=== PATIENT | female | born 1950 | race Caucasian/White ===

== ENCOUNTER 2017-09-17 11:46 | Emergency (ER) | payer MEDICARE, OTHER ==
[~2017-09-17] VITALS: Ht 170.2 cm; Wt 95.3 kg
[~2017-09-17 11:46] MED LIST: ASPIR 8181 MG; CELEBREX100 MG PO; GLUCOSAMINE1000 MG PO; MAG-OXIDE400 MG PO; NORTRIPTYLINE H25 MG PO; PREVACID 24HR15 MG PO; TOPAMAX100 MG PO; VERAPAMIL ER120 MG PO; VESICARE10 MG PO; VITAMIN D3400 UNI1 PO
--- OUTSIDE RECORDS SUMMARY | 2017-09-17 11:49 | XMS REPORT | Clinical Summary ---
Author Author [facility] Organization [facility] Address Unknown Phone Unavailable Care Team Providers Care Hop Separator Name Role Phone Gabriel Warren DO PCP Allergies Not on File Current Medications Not on file Active Problems Not on file Encounters Date Type Specialty Care Team Description 02/26/2017 [facility] Ross Marley MD Kidney stone Encounter 02/26/2017 [facility] Lopez MD Kidney stone ( Primary Dx) Orders 01/20/2017 [facility] Ross Marley MD Calculus of kidney Encounter 01/20/2017 [facility] Lopez MD Calculus of kidney Orders (Primary Dx) after 09/16/2016 Social History Tobacco Use Types Packs/Day Years Used Date Never Assessed Sex Assigned at Date Recorded Not on file Last Filed Vital Signs Not on file Plan of Treatment Health Maintenance Due Date Last Done Comments BREAST CANCER SCREENING 1998 COLON CANCER SCREENING 1998 SHINGRIX VACCINE (#1) 1998 ZOSTER VACCINE 2008 PNEUMOCOCCAL 2013 POLYSACCHARIDE VACCINE AGE 65 AND OVER PNEUMOCOCCAL-13 2013 INFLUENZA VACCINE 12/02/2017 Results * XR [facility] Kidney Ureter Bladder (02/26/2017 9:46 AM) Only the most recent of 2 results within the time period is included. Specimen Performing Laboratory [facility] [address] [place] [address] Narrative EXAMINATION:XR KUB KIDNEY URETER BLADDER CLINICAL HISTORY:N20.0 Calculus of kidney, n20.0 COMPARISON:KUB from 01/20/2017 IMPRESSION: Previously noted ill-defined cluster of calcific densities noted to the left of the L2 vertebral body are no longer visualized. No suspicious calcifications are seen to overlie the anatomic location of the left kidney or along the course of the left ureter. Phleboliths are seen within the pelvis. No calcifications are seen to overlie the right kidney or collecting system, however, evaluation is limited due to overlying bowel gas and stool. No dilated loops of large or small bowel. The bones of the abdomen and pelvis are unremarkable. The lung bases are clear. [id number] Procedure Note Hm Interface, Radiology Results Incoming - 02/26/2017 10:34 AM CDT EXAMINATION: XR KUB KIDNEY URETER BLADDER CLINICAL HISTORY: N20.0 Calculus of kidney, n20.0 COMPARISON: KUB from 01/20/2017 IMPRESSION: Previously noted ill-defined cluster of calcific densities noted to the left of the L2 vertebral body are no longer visualized. No suspicious calcifications are seen to overlie the anatomic location of the left kidney or along the course of the left ureter. Phleboliths are seen within the pelvis. No calcifications are seen to overlie the right kidney or collecting system, however, evaluation is limited due to overlying bowel gas and stool. No dilated loops of large or small bowel. The bones of the abdomen and pelvis are unremarkable. The lung bases are clear. [id number] after 09/16/2016 Insurance Payer Benefit Subscriber ID Type Phone Address Plan / Group AAMIR BOYER xxxxxxxxxxx HMO ACCESS/NET WORK MEDICARE MEDICARE xxxxxxxxxxx Medicare [place], [place] PART A AND B
--- OUTSIDE RECORDS SUMMARY | 2017-09-17 11:49 | XMS REPORT ---
Author Author [facility] Address Unknown Phone Unavailable Care Team Providers Care Miscellaneous Machine Operator Name Role Phone HARPER MARTIN Unavailable Unavailable Problems This patient has no known problems. Allergies, Adverse Reactions, Alerts This patient has no known allergies or adverse reactions. Medications This patient has no known medications. Results Test Description Test Time Test Comments Text Results Atomic Results Result Comments CT ABDOMEN/PELVIS WO [place] [address] Patient Name: LAINEY SOLIS MR #: [id number] : 1950 Age/Sex: 66/F Req #: [id number] Adm Physician: HARPER MARTIN MD Ordered by: JAQUELINE SANCHEZ MD Report #: [id number] Location: [facility]URG Room/Bed: [facility] _ Procedure: [id number] CT/CT ABDOMEN/PELVIS WO Exam Date: 01/11/17 Exam Time: 1926 REPORT STATUS: Signed EXAM: CT Abdomen and Pelvis WITHOUT contrast INDICATION: Renal stones. COMPARISON: KUB on 01/08/2017 TECHNIQUE: Abdomen and pelvis were scanned utilizing a multidetector helical scanner from the lung base to the pubic symphysis without administration of IV contrast. Absence of intravenous contrast decreases sensitivity for detection of focal lesions and vascular pathology. Coronal and sagittal reformations were obtained. Stone protocol is performed. IV CONTRAST: None. ORAL CONTRAST: Water RADIATION DOSE: Total DLP: 732.84 mGy*cm Estimated effective dose: (DLP x 0.015 x size factor) mSv COMPLICATIONS: None FINDINGS: LINES and TUBES: None. LOWER THORAX: Small bilateral pleural effusions HEPATOBILIARY: 1 cm simple cyst in segment 2 of the liver. No biliary ductal dilation. GALLBLADDER: There are stones in the gallbladder. No wall thickening. SPLEEN: No splenomegaly. PANCREAS: No focal masses or ductal dilatation. ADRENALS: No adrenal nodules KIDNEYS/URETERS: No hydronephrosis. 1.4 cm and now in the upper pole of the right kidney. 1 cm angiomyolipoma in the inferior pole of the right kidney. There are several stones in the interpolar and inferior renal collecting system of the left kidney measuring between 0.7 and 1 cm in diameter GI TRACT: No abnormal distention, wall thickening, or evidence of bowel obstruction. There are diverticula within the colon without evidence of diverticulitis. Appendix is normal. PELVIC ORGANS/BLADDER: There are postop changes of hysterectomy and bilateral oophorectomies. LYMPH NODES : No lymphadenopathy. VESSELS: Unremarkable. PERITONEUM / RETROPERITONEUM: No free air or fluid. BONES: Degenerative disc changes at L4-5 level SOFT TISSUES: Unremarkable. IMPRESSION: 1. Left-sided nephrolithiasis as described above. No evidence of hydronephrosis. 2. Bilateral small pleural effusions of indeterminate origin. 3. Right- sided angiomyolipoma of the kidney Signed by: Dr. Greg Cruz M.D. on 01/11 8:59 PM Dictated By: GREG MARTÍNEZ MD 58 Transcribed By: ABBIE on 01/11/172058 COPY TO: JAQUELINE SANCHEZ MD [facility]OMEN-1[facility] [place] [address] Patient Name: LAINEY SOLIS MR #: [id number] : 1950 Age/Sex: 66/F Req #: [id number] Adm Physician: HARPER MARTIN MD Ordered by: JAQUELINE SANCHEZ MD Report #: [id number] Location: [facility]/SURG2 Room/Bed: 206-1 _ Procedure: [id number] DX/ABDOMEN-1VIEW (KUB) Exam Date: 01/11/17 Exam Time: 06 REPORT STATUS: Signed Abdomen/KUB INDICATION: Follow-up stones. COMPARISON: Abdomen x-ray 01/08/2017. FINDINGS: Enteric contrast is identified throughout the large bowel, particularly the right colon and transverse colon. Bowel gas pattern is unremarkable. The calculi overlying the right renal collecting system are no longer visualized. A calculus to the right of the lower lumbar spine at L5 measures 6 mm and is grossly stable. No calculi appreciated over the left renal shadow or expected course of the left ureter. The osseous structures are stable with degenerative changes of the spine.. IMPRESSION: The calculi over the right renal shadow are no longer visualized. This could be due to technique or artifact. A calcification to the right of the L5 vertebral body is stable and may or may not be within the ureter. Unremarkable bowel gas pattern. Signed by: Dr. Sheron Mancilla MD on 02/2017 10:01 AM Dictated By: SHERON MANCILLA MD 1001 Transcribed By: ABBIE on 02/17 1001 COPY TO: JAQUELINE SANCHEZ MD ABDOMEN-1VIEW (KUB) [place] [address] Patient Name: LAINEY SOLIS MR #: [id number] : 1950 Age/Sex: 66/F Req #: [id number] Adm Physician: HARPER MARTIN MD Ordered by: JAQUELINE SANCHEZ MD Report #: [id number] Location: [facility] Room/Bed: [facility] 177-1 _ Procedure: [id number] DX/ABDOMEN-1VIEW (KUB) Exam Date: 01/08/17 Exam Time: 2029 REPORT STATUS: Signed EXAM: ABDOMEN- 1VIEW (KUB) DATE: 01/08/2017 7:36 PM Time stamp on exam: 2030 hours INDICATION: Evaluation of stones. COMPARISON: None FINDINGS: LINES/TUBES: None BOWEL PATTERN: No evidence for obstruction. SOFT TISSUES: There are multiple calcific densities overlying the right renal collecting system in the upper and interpolar region as well as 2 calcific densities in the distribution of the mid right ureter/gonadal vein. Upper pole of the right kidney: There is a 1.1 cm and 0.6 cm calcific densities. Interpolar region of the right kidney: 4 mm calcific density noted. Along the distribution of the mid right ureter/ vein there are a 0.7 and 0.5 cm calcific densities overlying the transverse process of L5 and right sacral ala. The inferior pole of the right kidney is obscured by radiopaque GI contrast in the colon. LUNG BASES: Not included BONES : Degenerative changes of the lower lumbar spine predominantly involving L4-5 and L5-S1 level IMPRESSION: Multiple calcific densities in the right kidney and distribution of the right ureter suggestive of nephrolithiasis and ureteral stones. CT of the abdomen and pelvis stone protocol is recommended for better assessment. Signed by: Dr. Greg Cruz M.D. on 01/08/2017 9: 08 PM Dictated By: GREG MARTÍNEZ MD 07 Transcribed By: ABBIE on 01/08/172107 COPY TO: JAQUELINE SANCHEZ MD
[2017-09-17 12:15] VITALS: BP 163/75
== END 2017-09-17 12:20 | disposition home or self-care (01) ==
LOC: ER 11:46 → FSED 12:20
DX: R05 Cough (principal); J20.9 Acute bronchitis, unspecified
CPT/HCPCS: 99282

== ENCOUNTER 2018-11-12 14:11 | Emergency (ER) | payer MEDICARE, OTHER ==
[~2018-11-12] VITALS: Ht 170.2 cm; Wt 95.3 kg
--- OUTSIDE RECORDS SUMMARY | 2018-11-12 14:14 | XMS REPORT | Clinical Summary ---
Author Author [facility] Organization [facility] Address Unknown Phone Unavailable Care Team Providers Care Risk Control Consultant Name Role Phone Gabriel Warren DO PCP Allergies Comments Active Allergy Reactions Severity Noted Date " Skin very thin, peels my skin off" Adhesive Tape-Silicones Other (See High 06/23/2018 Comments) Medications End Date Status Medication Sig Dispensed Refills Start Date Active losartan (COZAAR) 50 MG Take 50 mg by 0 tablet mouth every morning. Active atorvastatin (LIPITOR) 10 Take 10 mg by 0 MG tablet mouth every morning. Active verapamil sustained Take 240 mg 0 release (CALAN-SR) 240 MG by mouth SR tablet every morning. Active nortriptyline (PAMELOR) Take 25 mg by 0 25 MG capsule mouth nightly. Active topiramate (TOPAMAX) 25 Take 25 mg by 0 MG tablet mouth nightly. Takes 2 tabs at night Active magnesium oxide (MAG-OX) Take 400 mg 0 400 mg (241.3 mg by mouth magnesium) tablet daily. Active estradiol (VIVELLE-DOT) Place 1 patch 0 0.1 mg/24 hr on the skin 2 (two) times a week. Active glucosamine sulfate Take by mouth 0 (GLUCOSAMINE ORAL) daily. Active lansoprazole (PREVACID) Take 30 mg by 0 30 MG capsule mouth every morning. Active NON FORMULARY as needed. 0 finacea Active fluocinonide (LIDEX) 0.05 Apply 0 % external solution topically as needed. Active clobetasol (TEMOVATE) Apply 0 0.05 % cream topically as needed. Active cholecalciferol, vitamin Take by mouth 0 D3, (VITAMIN D3 ORAL) daily. Active iwzmnvd-bsyqnuqlbsigu-nro Take 1 tablet 0 feine (EXCEDRIN MIGRAINE) by mouth 250-250-65 mg per tablet every 6 (six) hours as needed for headaches. Active chlorpheniramine/phenylep Take 1 tablet 0 hrine (SINUS AND ALLERGY by mouth PE ORAL) daily as needed. Active acetaminophen (TYLENOL) Take 500 mg 0 500 MG tablet by mouth every 4 (four) hours as needed for mild pain. Active amoxicillin-pot 0 clavulanate (AUGMENTIN) 9 875-125 mg per tablet 07/15/2018 traMADol (ULTRAM) 50 mg Take 1 tablet 20 tablet 0 tablet (50 mg total) 9 by mouth every 6 (six) hours as needed for moderate pain for up to 10 days. 07/20/2018 methen-m.blue-s.phos-phsa Take 1 tablet 50 capsule 0 l-hyo (URIBEL) by mouth 4 9 118-10-40.8-36 mg capsule (four) times a day as needed (bladder pain, burning with urination) for up to 15 days. 08/04/2018 docusate sodium (COLACE) Take 1 60 capsule 0 50 MG capsule capsule (50 9 mg total) by mouth 2 (two) times a day as needed for constipation for up to 30 days. 07/12/2018 ciprofloxacin (CIPRO) 500 Take 1 tablet 14 tablet 0 MG tablet (500 mg 9 total) by mouth 2 (two) times a day for 7 days. Active Problems Not on file Encounters Care Team Description Date Type Specialty Ross Marley MD CYSTO, LEFT URETEROSCOPY, LEFT RETROGRADE PYELEOGRAM, LASER LITHOTRIPSY WITH LEFT STENT EXCHANGE 09/08/2018 Surgery Urology Refugio Johnson DO 09/08/2018 Anesthesia Urology Event Ross Marley MD 09/08/2018 Hospital Urology Encounter Ross Marley MD CYSTO WITH LEFT URETEROSCOPY W/ LASER LITHOTRIPSY, LEFT STENT EXCHANGE 07/28/2018 Surgery Urology Sylvie Dyer MD 07/28/2018 Anesthesia Urology Event Ross Marley MD Ureteral stone 07/28/2018 Hospital Urology Encounter Ross Marley MD CYSTOSCOPY, LEFT URETEROSCOPY, LEFT RETROGRADE PYELOGRAM, LEFT STENT PLACEMENT 07/05/2018 Surgery Urology Tremaine Darden, PRACHI 07/05/2018 Anesthesia Urology Event Ross Marley MD 07/05/2018 Hospital Urology Encounter Ross Marley MD Preop testing (Primary Dx) 06/25/2018 Pre-Admit Pre-Admission Testing Testing Appointment after 11/11/2017 Family History Medical History Relation Name Comments COPD Brother Hyperlipidemia Father Hypertension Father Leukemia Father Alzheimer's disease Mother COPD Mother Osteoporosis Mother Relation Name Status Comments Brother Alive Father Mother Social History Date Tobacco Use Types Packs/Day Years Used Never Smoker Smokeless Tobacco: Never Used Tobacco Cessation: Counseling Given: No Alcohol Use Drinks/Week oz/Week Comments Yes very rare Sex Assigned at Date Recorded Not on file Industry Job Start Date Occupation Not on file Not on file Not on file Travel End Travel History Travel Start No recent travel history available. Last Filed Vital Signs Time Taken Vital Sign Reading 09/08/2018 3:46 PM CDT Blood Pressure 139/65 09/08/2018 3:46 PM CDT Pulse 86 09/08/2018 10:47 AM CDT Temperature 36.3 C (97.3 F) 09/08/2018 3:46 PM CDT Respiratory Rate 18 09/08/2018 3:46 PM CDT Oxygen Saturation 99% - Inhaled Oxygen - Concentration 09/08/2018 8:36 AM CDT Weight 94.9 kg (209 lb 2 oz) 09/08/2018 8:36 AM CDT Height 170.2 cm (5' 7") 09/08/2018 8:36 AM CDT Body Mass Index 32.75 Plan of Treatment Care Team Description Date Type Specialty Ross Marley MD [address] [facility] [place] [address] [phone] 12/08/2018 Hospital Urology Encounter Ross Marley MD [address] [facility] [place], [place] [id number] CYSTOSCOPY LEFT RETROGRADE PYELOGRAM, LEFT STENT REMOVAL VS EXCHANGE 12/08/2018 Surgery Urology Health Maintenance Due Date Last Done Comments BREAST CANCER SCREENING 1998 COLONOSCOPY SCREENING 1998 SHINGLES VACCINES (#1) 1998 65+ PNEUMOCOCCAL VACCINE 2013 (1 of 2 - PCV13) INFLUENZA VACCINE 12/02/2018 Implants Device Identifier Shelf Expiration Date Model / Serial / Lot Implanted Type Area Manufactur er 07/02/2019 [id number] / / [id number] Stent Contour Injection 4.8x26 - Surgical N/A: N/A [facility] [place] [id number] Stents UROLOGY Implanted: Qty: 1 on 07/05/2018 by Ross Marley MD 03/11/2021 [id number] / / [id number] Stent Uretl Filifm Dbl Pigtl 6fr Surgical Left: Ureter, COOK 26cm Anitha Blk - [id number] Stents Lime UROLOGICAL Implanted: 07/28/2018 (Quantity not on file) 07/17/2020 [id number] / / [id number] Stent Uretl Filifm Dbl Pigtl 7fr Surgical N/A: N/A COOK 24cm Anitha Blk - [id number] Stents UROLOGICAL Implanted: Qty: 1 on 09/08/2018 by Ross Marley MD Procedures Comments Procedure Name Priority Date/Time Associated Diagnosis FL RENAL STENTOGRAM Routine 09/08/2018 10:00 AM CDT UT AN ELECTIVE Routine 09/08/2018 SUPRAGLOTTIC AIRWAY 9:31 AM CDT Procedure Note - Susie Morocho CRNA - 09/08/2018 9:31 AM CDT Airway Performed by: Susie Morocho CRNA Authorized by: Refugio Johnson DO Location: OR Urgency: Elective Difficult Airway: No Resident/C RNA/AA: Susie Morocho CRNA Performed by: resident/C RNA/AA Preoxygena abilio with 100% O2: Yes C-spine Precaution s Maintained Throughout : Yes Mask Ventilatio n: Easy mask Final Airway Type: Supraglott ic airway Final LMA: Classic LMA Size: 4 Number of Attempts at Approach: 1 Preoxygen ated x 3 minutes, eyes lubed and taped after LOC, oral and facial structures unchanged post LMA placement CYSTO, URETEROSCOPY 09/08/2018 Ureteral calculus, left 9:30 AM CDT Case Notes REQ 1000 START Special Needs REQ 1000 START POC PANEL Routine 09/08/2018 9:06 AM CDT ESTIMATED GFR Routine 09/08/2018 9:06 AM CDT FL > 1 HOUR Routine 07/28/2018 11:20 AM CDT UT AN ELECTIVE Routine 07/28/2018 SUPRAGLOTTIC AIRWAY 10:34 AM CDT Procedure Note - Carlos Manuel Thao CRNA - 07/28/2018 10:34 AM CDT Airway Date/Time: 07/28/2018 10:34 AM Performed by: Carlos Manuel Thao CRNA Authorized by: Sylvie Dyer MD Location: OR Urgency: Elective Difficult Airway: No Resident/C RNA/AA: Carlos Manuel Thao CRNA Performed by: resident/C RNA/AA Preoxygena abilio with 100% O2: Yes C-spine Precaution s Maintained Throughout : Yes Mask Ventilatio n: Not attempted Final Airway Type: Supraglott ic airway Final LMA: Classic LMA Size: 4 Number of Attempts at Approach: 1 CYSTO WITH URETEROSCOPY 07/28/2018 Ureteral stone 10:30 AM CDT Case Notes EST 1 HR, RESENDIZ LASER Special Needs EST 1 HR, RESENDIZ LASER FL RENAL STENTOGRAM Routine 07/05/2018 3:31 PM RADIATOR CORE TESTER UT AN ELECTIVE Routine 07/05/2018 SUPRAGLOTTIC AIRWAY 2:36 PM RADIATOR CORE TESTER Procedure Note - Carlos Manuel Thao CRNA - 07/05/2018 2:36 PM RADIATOR CORE TESTER Airway Date/Time: 07/05/2018 2:36 PM Performed by: Carlos Manuel Thao CRNA Authorized by: Refugio Johnson DO Location: OR Urgency: Elective Difficult Airway: No Resident/C RNA/AA: Carlos Manuel Thao CRNA Performed by: resident/C RNA/AA Preoxygena abilio with 100% O2: Yes C-spine Precaution s Maintained Throughout : Yes Mask Ventilatio n: Not attempted Final Airway Type: Supraglott ic airway Final LMA: Classic LMA Size: 4 Number of Attempts at Approach: 1 CYSTOSCOPY, WITH URINARY 07/05/2018 Renal stone CALCULUS MANIPULATION 2:30 PM RADIATOR CORE TESTER Case Notes EST 1 HRS Special Needs EST 1 HRS URINE CULTURE Routine 06/25/2018 1:48 PM RADIATOR CORE TESTER URINALYSIS SCREEN AND Routine 06/25/2018 Preop testing MICROSCOPY, WITH REFLEX 11:49 AM RADIATOR CORE TESTER TO CULTURE ESTIMATED GFR Routine 06/25/2018 11:47 AM RADIATOR CORE TESTER BASIC METABOLIC PANEL Routine 06/25/2018 Preop testing 11:47 AM RADIATOR CORE TESTER HC COMPLETE BLD COUNT Routine 06/25/2018 Preop testing W/AUTO DIFF 11:47 AM RADIATOR CORE TESTER after 11/11/2017 Results * FL Renal Stentogram (09/08/2018 10:00 AM CDT) Only the most recent of 2 results within the time period is included. Specimen Narrative Performed At IMPRESSION:C-arm Fluoroscopy under 1 hour was provided in the OR for the [facility] referring physician.A radiologist was not present during the procedure. Refer to the Operative report issued by the performing provider for procedure details. Procedure Note Hm Interface, Radiology Results Incoming - 09/08/2018 3:38 PM CDT IMPRESSION: C-arm Fluoroscopy under 1 hour was provided in the OR for the referring physician. A radiologist was not present during the procedure. Refer to the Operative report issued by the performing provider for procedure details. Performing Organization Address City/State/Zipcode Phone Number [facility] [address] [place] [address] * Estimated GFR (09/08/2018 9:06 AM CDT) Only the most recent of 2 results within the time period is included. Estimated GFR 51 (A) mL/min/1.73 m2 [place] Comment: [facility] rpretation G1 >=90 Normal or high G2 60-89Mildly decreased G2e70-15 Mildly to moderately decreased N3w21-74 Moderately to severely decreased G4 15-29Severely decreased G5 <15Kidney failure The eGFR was calculated using the Chronic Kidney Disease Epidemiology Collaboration (CKD-EPI) equation. Interpretation is based on recommendations of the National Kidney Foundation-Kidney Disease Outcomes Quality Initiative (NKF-KDOQI) published in 2014. Specimen Blood Performing Organization Address City/State/Zipcode Phone Number [facility] DEPARTMENT OF [address] [place] [address] PATHOLOGY AND GENOMIC MEDICINE [place] [facility] [address] [place] [address] * POC panel (09/08/2018 9:06 AM CDT) POC sodium 142 135 - 148 mmol/L [facility] POC potassium 4.6 3.5 - 5.0 mmol/L [facility] POC chloride 104 99 - 109 mmol/L [facility] POC CO2 26 24 - 31 mmol/L [facility] POC glucose 90 65 - 99 mg/dL [facility] POC BUN 11 8 - 24 mg/dL [facility] POC creatinine 1.1 (H) 0.5 - 0.9 mg/dl [facility] POC hematocrit 37 37 - 47 % [facility] POC anion gap 17 8 - 20 mmol/L [place] Comment: [facility] Meter ID: [id number] HOSPITAL Upholsterer Helper: Neftaly Casanova Specimen Performing Organization Address City/State/Zipcode Phone Number [facility] [place] [address] PATHOLOGY AND GENOMIC MEDICINE [address] * FL > 1 Hour (07/28/2018 11:20 AM CDT) Specimen Narrative Performed At EXAMINATION:FL >1 HOUR RADIANT LOCATION: MAIN OR CYSTO 1 PROCEDURE:CYSTOSCOPY START TIME: 1000 FINISH TIME: 1120 FLUORO TIME: 1:40 MIN DOSE:56.9 mGR TECH(S): AM IMPRESSION: Fluoroscopy was requested in the Endoscopy Suite. Separate endoscopy report will be issued by the physician performing the procedure. Procedure Note Interface, Radiology Results Incoming - 08/02/2018 9:20 PM CDT EXAMINATION: FL > 1 HOUR LOCATION: MAIN OR CYSTO 1 PROCEDURE: CYSTOSCOPY START TIME: 1000 FINISH TIME: 1120 FLUORO TIME: 1:40 MIN DOSE: 56.9 mGR TECH(S): AM IMPRESSION: Fluoroscopy was requested in the Endoscopy Suite. Separate endoscopy report will be issued by the physician performing the procedure. Performing Organization Address City/State/Zipcode Phone Number [facility] [address] [place] [address] * Urine culture (06/25/2018 1:48 PM RADIATOR CORE TESTER) Urine culture SEE COMMENTComment: [place] Bacteriuria screen negative. [facility] Specimen Performing Organization Address City/State/Zipcode Phone Number [facility] [place] [address] PATHOLOGY AND GENOMIC MEDICINE [address] * Urinalysis screen and microscopy, with reflex to culture (06/25/2018 11:49 AM RADIATOR CORE TESTER) Specimen site Clean catch [facility] Color, UA Straw [facility] Appearance, UA Clear [facility] Specific 1.006 1.001 - 1.035 [place] gravity, [facility] pH, UA 7.0 5.0 - 8.5 [facility] Protein, UA Negative Negative [facility] Glucose, UA Negative Negative [facility] Ketones, UA Negative Negative [facility] Bilirubin, UA Negative Negative [facility] Blood, UA Negative Negative [facility] Nitrite, UA Negative Negative [facility] Urobilinogen, <2.0 <2.0 [facility] Leukocyte Negative Negative [place] esterase, [facility] Epithelial 1 /HPF [place] cells, [facility] WBC, UA None seen 0 - 4 /HPF [facility] RBC, UA None seen 0 - 5 /HPF [facility] Bacteria, UA Few None seen [facility] Yeast, UA None seen [facility] Yeast with None seen [place] pseud[facility]ypha[facility]INT [facility] Specimen Urine Performing Organization Address City/State/Zipcode Phone Number [facility] DEPARTMENT OF [address] [place] [address] PATHOLOGY AND GENOMIC MEDICINE [address] * CBC with platelet and differential (06/25/2018 11:47 AM RADIATOR CORE TESTER) WBC 7.99 4.50 - 11.00 k/uL [facility] RBC 4.42 4.20 - 5.50 m/uL [facility] HGB 12.1 12.0 - 16.0 g/dL [facility] HCT 40.5 37.0 - 47.0 % [facility] MCV 91.6 82.0 - 100.0 fL [facility] MCH 27.4 27.0 - 34.0 pg [facility] MCHC 29.9 (L) 31.0 - 37.0 g/dL [facility] RDW - SD 50.5 37.0 - 55.0 fL [facility] MPV 10.5 8.8 - 13.2 fL [facility] Platelet count 213 150 - 400 k/uL [facility] Nucleated RBC 0.00 /100 WBC [facility] Neutrophils 67.6 39.0 - 69.0 % [facility] Lymphocytes 20.4 (L) 25.0 - 45.0 % [facility] Monocytes 9.0 0.0 - 10.0 % [facility] Eosinophils 2.1 0.0 - 5.0 % [facility] Basophils 0.5 0.0 - 1.0 % [facility] Immature 0.4Comment: "Immature 0.0 - 1.0 % [place] granulocytes granulocytes" (promyelocytes, [facility] myelocytes, metamyelocytes) HOSPITAL Specimen Blood Performing Organization Address City/State/Zipcode Phone Number [facility] DEPARTMENT OF [address] [place] [address] PATHOLOGY AND GENOMIC MEDICINE [address] * Basic metabolic panel (06/25/2018 11:47 AM RADIATOR CORE TESTER) Sodium 138 135 - 148 mEq/L [facility] Potassium 4.4 3.5 - 5.0 mEq/L [facility] Chloride 103 98 - 112 mEq/L [facility] CO2 26 24 - 31 mEq/L [facility] Anion gap 9@ANIO 7 - 15 mEq/L [facility] BUN 13 8 - 23 mg/dL [facility] Creatinine 1.15 (H) 0.50 - 0.90 mg/dL [facility] Glucose 83 65 - 99 mg/dL [facility] Calcium 8.9 8.8 - 10.2 mg/dL [facility] Specimen Plasma specimen Performing Organization Address City/State/Zipcode Phone Number [facility] DEPARTMENT OF [address] [place] [address] PATHOLOGY AND GENOMIC MEDICINE [address] after 11/11/2017 Insurance Type Payer Benefit Subscriber ID Effective Phone Address Plan / Dates Group Indemnity CIGNA CIGNA xxxxxxxxxxx 2001-P INDEMNITY resent Medicare MEDICARE MEDICARE xxxxxxxxxxx 2013-P PERAL[place], PART A AND resent [place] B Advance Directives Patient has advance care planning documents on file. For more information, belinda kwong contact: Samir Andrea [address] [place] [address]
--- OUTSIDE RECORDS SUMMARY | 2018-11-12 14:16 | XMS REPORT | Summary of Care ---
Author Organization Unknown Address Unknown Phone Unavailable Encounter HQ Anirudhr_magdalene(BRIDGETTE) [id number] Date(s): 02/27/14 - 02/27/14 [facility] Outpatient Imaging [address] [address] [place] Discharge Disposition: Home Physician Attending: Mathew Trevino MD Reason for Visit 346.60 - PRS JOSE LUIS W INF W Problem List No data available for this section Allergies, Adverse Reactions, Alerts Substance Reaction Severity Status NKDA Active Medications No data available for this section Medications Administered During Your Visit No data available for this section Immunizations No data available for this section
--- OUTSIDE RECORDS SUMMARY | 2018-11-12 14:16 | XMS REPORT | Summary of Care ---
Author Author [facility] Outpatient Imaging [facility] Outpatient Imaging [place] Address Unknown Phone Unavailable Encounter HQ Encntr_alias(FIN) [id number] Date(s): 09/25/15 - 09/25/15 [facility] Outpatient Imaging [place] [address] [place] [phone] Discharge Disposition: Home Attending Physician: Mathew Trevino MD Vital Signs No data available for this section Problem List No data available for this section Allergies, Adverse Reactions, Alerts Substance Reaction Severity Status NKDA Active Medications No data available for this section Results No data available for this section Immunizations No data available for this section Procedures No data available for this section Social History No data available for this section Assessment and Plan No data available for this section
--- OUTSIDE RECORDS SUMMARY | 2018-11-12 14:16 | XMS REPORT | Summary of Care ---
Author Author [facility] Organization [facility] Address Unknown Phone Unavailable Encounter HQ Encntr_aliarlette(FIN) [id number] Date(s): 03/18/17 - 03/18/17 [facility] [address] [place] [address]- [phone] Discharge Disposition: Home or Self Care Attending Physician: Adarsh Wilson MD Referring Physician: Adarsh Wilson MD Vital Signs No data available for [...]
--- OUTSIDE RECORDS SUMMARY | 2018-11-12 14:16 | XMS REPORT | Continuity of Care Document ---
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 [place] OBESITY, UNSPECIFIED Active [facility] Medications Medication Details Route Status Patient Instructions Ordering Provider Order Date Source Aspirin (Aspir 81) 81 Mg Tablet. [facility] Celecoxib (Celebrex*) 100 Mg Capsule Twice A Day [facility] Cholecalciferol (Vitamin D3) (Vitamin D3) 400 Unit Tab.chew Daily [facility] Glucosamine Sulfate 2KCL (Glucosamine) 1,000 Mg Tablet Twice A Day [facility] Lansoprazole (Prevacid 24HR) [address] Elizabeth [facility] Magnesium Oxide (Mag-Oxide) 400 Mg Tablet Daily [facility] Nortriptyline Hcl 25 Mg Capsule Daily [facility] Solifenacin Succinate (Vesicare) 10 Mg Tablet Daily [facility] Topiramate (Topamax*) 100 Mg Tablet Twice A Day [facility] Verapamil Hcl (Verapamil Er) 120 Mg Cap24h.pel Daily [facility] Allergies, Adverse Reactions, Alerts Substance Category Reaction Severity Reaction type Status Date Reported Comments Source No Known Drug Allergies Unknown Allergy to Substance Active 12/31/2009 [facility] TAPE Unknown Allergy to Substance Active 01/08/2017 [facility] Immunizations No Data Provided for This Section Results Order Name Results Value Reference Range Date Interpretation Comments Source Automated blood basophil count (count/volume) Automated blood basophil count (count/volume) 0.0 0.0 - 0.1 01/11/2017 [facility] Automated blood basophil count as percentage of total leukocytes Automated blood basophil count as percentage of total leukocytes 0.2 0.0 - 1.0 01/11/2017 [facility] Automated blood eosinophil count Automated blood eosinophil count 0.2 0.0 - 0.4 01/11/2017 [facility] Automated blood eosinophil count as percentage of total leukocytes Automated blood eosinophil count as percentage of total leukocytes 2.3 0.0 - 6.0 01/11/2017 [facility] Automated blood hematocrit (volume fraction) Automated blood hematocrit (volume fraction) 28.7 34.2 - 44.1 01/11/2017 [facility] Automated blood lymphocyte count as percentage ot total leukocytes Automated blood lymphocyte count as percentage ot total leukocytes 12.4 18.0 - 39.1 01/11/2017 [facility] Automated blood monocyte count as percentage of total leukocytes Automated blood monocyte count as percentage of total leukocytes 12.4 4.4 - 11.3 01/11/2017 [facility] Automated blood neutrophil count Automated blood neutrophil count 5.9 2.1 - 6.9 01/11/2017 [facility] Automated blood platelet count (count/volume) Automated blood platelet count (count/volume) 228 140 - 360 01/11/2017 [facility] Automated blood segmented neutrophil count as percentage of total leukocytes Automated blood segmented neutrophil count as percentage of total leukocytes 71.7 38.7 - 80.0 01/11/2017 [facility] Automated erythrocyte mean corpuscular hemoglobin (mass per erythrocyte) Automated erythrocyte mean corpuscular hemoglobin (mass per erythrocyte) 27.3 28 - 32 01/11/2017 [facility] Automated erythrocyte mean corpuscular hemoglobin concentration measurement (mass/volume) Automated erythrocyte mean corpuscular hemoglobin concentration measurement (mass/volume) 32.1 31 - 35 01/11/2017 [facility] Automated erythrocyte mean corpuscular volume Automated erythrocyte mean corpuscular volume 85.2 81 - 99 01/11/2017 [facility] Blood erythrocytes automated count (number/volume) Blood erythrocytes automated count (number/volume) 3.37 3.6 - 5.1 01/11/2017 [facility] Blood hemoglobin measurement (moles/volume) Blood hemoglobin measurement (moles/volume) 9.2 12.0 - 16.0 01/11/2017 [facility] Blood leukocytes automated count (number/volume) Blood leukocytes automated count (number/volume) 8.28 4.8 - 10.8 01/11/2017 [facility] Blood lymphocytes count (number/volume) Blood lymphocytes count (number/volume) 1.0 1.0 - 3.2 01/11/2017 [facility] Blood monocytes automated count (number/volume) Blood monocytes automated count (number/volume) 1.0 0.2 - 0.8 01/11/2017 [facility] Estimated glomerular filtration rate (GFR) determination Estimated glomerular filtration rate (GFR) determination >60 60 01/11/2017 [facility] Glucose measurement Glucose measurement 97 74 - 118 01/11/2017 [facility] Serum or plasma anion gap Serum or plasma anion gap 10.3 8 - 16 01/11/2017 [facility] Serum or plasma calcium measurement (mass/volume) Serum or plasma calcium measurement (mass/volume) 8.4 8.4 - 10.2 01/11/2017 [facility] Serum or plasma carbon dioxide, total measurement (moles/volume) Serum or plasma carbon dioxide, total measurement (moles/volume) 23 22 - 29 01/11/2017 [facility] Serum or plasma chloride measurement (moles/volume) Serum or plasma chloride measurement (moles/volume) 109 98 - 107 01/11/2017 [facility] Serum or plasma creatinine measurement (mass/volume) Serum or plasma creatinine measurement (mass/volume) 0.71 0.57 - 1.11 01/11/2017 [facility] Serum or plasma potassium measurement (moles/volume) Serum or plasma potassium measurement (moles/volume) 3.3 3.5 - 5.1 01/11/2017 [facility] Serum or plasma sodium measurement (moles/volume) Serum or plasma sodium measurement (moles/volume) 139 136 - 145 01/11/2017 [facility] Serum or plasma urea nitrogen measurement (mass/volume) Serum or plasma urea nitrogen measurement (mass/volume) 9 7 - 26 01/11/2017 [facility] Serum or plasma urea nitrogen/creatinine mass ratio Serum or plasma urea nitrogen/creatinine mass ratio 13 6 - 25 01/11/2017 [facility] Red Cell Distribution Width 15.1 11.7 - 14.4 01/11/2017 [facility] IM GRANULOCYTES % 1.0 0.0 - 1.0 01/11/2017 [facility] Absolute Immature Granulocyte (auto 0.08 0 - 0.1 01/11/2017 [facility] Automated urine sediment leukocyte count by microscopy (number/high power field) Automated urine sediment leukocyte count by microscopy (number/high power field) <20 0 - 5 01/09/2017 [facility] Bacteria detection in urine sediment by light microscopy Bacteria detection in urine sediment by light microscopy FEW NONE 01/09/2017 [facility] Epithelial cells detection in urine sediment by light microscopy Epithelial cells detection in urine sediment by light microscopy RARE NONE 01/09/2017 [facility] Erythrocytes detection in urine sediment by light microscopy Erythrocytes detection in urine sediment by light microscopy <5 0 - 5 01/09/2017 [facility] Specific gravity of Urine by Test strip Specific gravity of Urine by Test strip 1.010 1.010 - 1.025 01/09/2017 [facility] Urine clarity Urine clarity HAZY CLEAR 01/09/2017 [facility] Urine color determination Urine color determination YELLOW YELLOW 01/09/2017 [facility] Urine erythrocytes detection Urine erythrocytes detection 3+ NEGATIVE 01/09/2017 [facility] Urine glucose detection Urine glucose detection NEGATIVE NEGATIVE 01/09/2017 [facility] Urine ketones detection by automated test strip Urine ketones detection by automated test strip 2+ NEGATIVE 01/09/2017 [facility] Urine leukocyte esterase detection by dipstick Urine leukocyte esterase detection by dipstick 2+ NEGATIVE 01/09/2017 [facility] Urine nitrite detection Urine nitrite detection POSITIVE NEGATIVE 01/09/2017 [facility] Urine pH measurement by automated test strip Urine pH measurement by automated test strip 6 5 - 7 01/09/2017 [facility] Urine protein measurement by test strip (mass/volume) Urine protein measurement by test strip (mass/volume) TRACE NEGATIVE 01/09/2017 [facility] Urine total bilirubin measurement (mass/volume) Urine total bilirubin measurement (mass/volume) NEGATIVE NEGATIVE 01/09/2017 [facility] Urine urobilinogen measurement by test strip (mass/volume) Urine urobilinogen measurement by test strip (mass/volume) 0.2 0.2 - 1 01/09/2017 [facility] Plasma globulin measurement (mass/volume) Plasma globulin measurement (mass/volume) 3.8 2.3 - 3.5 01/09/2017 [facility] Serum or plasma alanine aminotransferase measurement (enzymatic activity/volume) Serum or plasma alanine aminotransferase measurement (enzymatic activity/volume) 13 0 - 55 01/09/2017 [facility] Serum or plasma albumin measurement (mass/volume) Serum or plasma albumin measurement (mass/volume) 2.6 3.5 - 5.0 01/09/2017 [facility] Serum or plasma albumin/globulin mass ratio Serum or plasma albumin/globulin mass ratio 0.7 0.8 - 2.0 01/09/2017 [facility] Serum or plasma alkaline phosphatase measurement (enzymatic activity/volume) Serum or plasma alkaline phosphatase measurement (enzymatic activity/volume) 98 40 - 150 01/09/2017 [facility] Serum or plasma calcium measurement (mass/volume) Serum or plasma calcium measurement (mass/volume) 8.1 8.7 - 10.3 01/09/2017 [facility] Serum or plasma intact pararthyroid hormone measurement (mass/volume) Serum or plasma intact pararthyroid hormone measurement (mass/volume) 33 15 - 65 01/09/2017 [facility] Serum or plasma magnesium measurement (mass/volume) Serum or plasma magnesium measurement (mass/volume) 2.0 1.3 - 2.1 01/09/2017 [facility] Serum or plasma protein measurement (mass/volume) Serum or plasma protein measurement (mass/volume) 6.4 6.5 - 8.1 01/09/2017 [facility] Serum or plasma total bilirubin measurement (mass/volume) Serum or plasma total bilirubin measurement (mass/volume) 0.3 0.2 - 1.2 01/09/2017 [facility] Serum or plasma uric acid measurement (mass/volume) Serum or plasma uric acid measurement (mass/volume) 4.6 2.6 - 6.0 01/09/2017 [facility] Aspartate Amino Transf (AST/SGOT) 11 5 - 34 01/09/2017 [facility] Parathyroid Hormone Interpretation Comment . 01/09/2017 [facility] Pathology Reports No Data Provided for This Section Diagnostic Reports Report Value Date Source Stomach emptying NM Patient Name: JENNIFER SOLIS : 1950; Age: 66 years Female MR: [id number] Study: Stomach emptying NM 03/18/2017 9:00 AM [employer] CLINICAL INDICATION: - R11.0 Nausea. COMPARISON: None TECHNIQUE: Gastric emptying study is performed using 1.16 mCi of technetium 99m sulfur colloid mixed with scrambled egg administered orally. Total of 4 hours of static imaging was performed at 30 minute intervals in the frontal plane up to 2 hours followed by additional planar imaging at 3 hours and 4 hours. The data was used for gastric emptying calculation/extrapolation. FINDINGS: Normal progression of the radiotracer from stomach into bowel. The T-1/2 is 114 minutes (normal for solids < 90 minutes). Gastric emptying at 90 minutes: 39 % Gastric emptying at 2 hours: 51 % (normal greater than 60%) Gastric emptying at 3 hours: 69 % (normal greater than 70%) Gastric emptying at 4 hours: 69 % (normal greater than 90%) IMPRESSION: Findings suggestive of delayed gastric emptying possibly related to gastroparesis. SL: [id number] 03/18/2017 [facility] Brain stroke protocol MRI EXAM: MRI BRAIN WITHOUT CONTRAST DATE: 09/25/2015 2:12 PM CDT INDICATION: G45.9 Transient cerebral ischemic attack, unspecified COMPARISON: 02/27/2014 TECHNIQUE: Multiplanar, multisequence MR images of the brain are performed prior contrast administration. CONTRAST: None FINDINGS: Diffusion-weighted images fail to identify the presence of a recent infarct. There is no interval change in the mild chronic microvascular ischemic changes of the periventricular white matter. The appearance of the remainder of the brain parenchyma is also unchanged. In particular, there has been no interval hemorrhage or development of hydrocephalus. Incidental imaging of the orbits, paranasal sinuses, skull, and skull base demonstrates no interval change. Appropriate flow-voids are present in the vessels at the base of the brain. Multiple small subcutaneous lesions are present in the scalp, similar to the patient's previous exam indicative of sebaceous cysts. IMPRESSION: No recent infarct or hemorrhage. MRI examination of the brain is unchanged. 09/25/2015 LILLIAN Delgado Consultation Notes No Data Provided for This Section Discharge Summaries No Data Provided for This Section History and Physicals No Data Provided for This Section Vital Signs No Data Provided for This Section Encounters Location Location Details Encounter Type Encounter Number Reason For Visit Attending Provider ADM Date DC Date Status Source [facility] [id number] Mathew Trevino 02/27/2014 02/28/2014 LILLIAN Hinsona [facility] [id number] Mathew Trevino 09/25/2015 09/26/2015 LILLIAN Delgado Discharged Inpatient [id number] HARPER MARTIN MD 01/09/2017 01/13/2017 [facility] Outpatient [id number] Adarsh Wilson 03/18/2017 03/19/2017 [facility] Departed Emergency Room [id number] ELY ENNIS MD 09/17/2017 09/17/2017 [facility] Procedures Procedure Code Date Perfomer Comments Source CT of abdomen and pelvis without contrast [id number] 01/11/2017 LAURA [facility] Assessment and Plan No Data Provided for This Section Plan of Care Plan of Care Date Source Discharge Date 09/17/17 12:20pm Disposition HOME, SELF-CARE Condition at Discharge Stable Instructions/Education Provided Bronchitis (Acute) - Adult Forms Provided Work/School Excuse Prescriptions See Medication Section Referrals DAILY RUSS DO Address: [address] [place] [id number] Additional Instructions/Education DISCHARGE INSTRUCTIONS No restrictions to activity. Drink plenty of fluids. Warnings: GENERAL WARNINGS: Return or contact your physician immediately if your condition worsens or changes unexpectedly, if not improving as expected, or if other problems arise. Prescription Medications: 09/17/2017 Jennifer Solis, : 1950, , [email or web address] [email or web address] Tessalon Perles 100 mg: Take 1 orally every 8 hours as needed for cough. Dispense twenty (20). No refills. Substitution is permissible. Zithromax 250 mg tablets: take 2 orally today, followed by 1 daily for the next 4 days. No refills. Substitution is permissible. Follow-up: Return to the emergency department as needed. 09/17/2017 [facility] Social History Social History Date Source Social History Problem Response Recorded Date/Time Onset Date Status Hx Psychiatric Problems No 01/08/2017 6:55pm Not Applicable Not Applicable Smoking Status Start Date Stop Date Never Smoker 09/17/2017 [facility] No data available for this section 03/19/2017 [facility] No data available for this section 09/26/2015 LILLIAN Delgado Family History No Data Provided for This Section Advance Directives Order Name Results Value Date Source Advance Directives Advance Directives Directive Response Recorded Date/Time Does the patient have an advance directive? No 01/08/17 6:55pm If yes, is advance directive on file with [facility]? No 01/08/17 6:55pm If not on file with [facility] will patient provide a copy? Yes 01/08/17 6:55pm Do you have a Directive to Physician? No 09/17/17 12:04pm Do you have a Medical Power of Machine Sizer? No 09/17/17 12:04pm Do you have an out of hospital Do Not Resuscitate Order? No 09/17/17 12:04pm Do you have any special needs we should be aware of? No 09/17/17 12:04pm Do you have a support person here with you today? No 09/17/17 12:04pm Did patient receive Notice of Privacy Practices? Yes 09/17/17 12:04pm Did patient receive patient rights and responsibilities? Yes 09/17/17 12:04pm 09/17/2017 [facility] Functional Status No Data Provided for This Section
[2018-11-12] MEDS ORDERED: IBUPROFEN 600 MG TAB PO ONE (15:04)
[2018-11-12] MEDS ORDERED: IBUPROFEN 200 MG TAB ONE (15:09)
[2018-11-12] MEDS ORDERED: NAPROSYN500 MG PO (15:09)
[2018-11-12] MEDS ORDERED: ULTRAM50 MG PO (15:09)
[2018-11-12] MEDS ORDERED: COLACE100 MG PO (15:11)
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
[2018-11-12 15:36] VITALS: BP 149/63
== END 2018-11-12 15:30 | disposition home or self-care (01) ==
LOC: FSED 14:11
DX: M54.2 Cervicalgia (principal); S16.1XXA Strain of muscle, fascia and tendon at neck level, initial encounter; S80.02XA Contusion of left knee, initial encounter; V43.52XA Car driver injured in collision with other type car in traffic accident, initial encounter; Y92.488 Other paved roadways as the place of occurrence of the external cause; I10 Essential (primary) hypertension
CPT/HCPCS: 72125; 99283